=== PATIENT | female | born 1965 | race Caucasian/White ===

== ENCOUNTER 2017-10-24 09:10 | Observation (INO) | payer OTHER, SELFPAY ==
[~2017-10-24 09:10] MED LIST: ACCUNEB SO1.25 MG/1; AZOR 5-40 MG T1 EACH PO; COMPAZINE10 MG PO; KLOR-CON 1010 MEQ PO; MAGNESIUM250 M1 PO; MULTI VITAMIN1 EACH; NASONEX17 GM; NOLVADEX20 MG PO; NORCO 7.5-3251 EACH PO; ZOFRAN ODT4 MG PO
[2017-10-24] MEDS ORDERED: ALBUTEROL2.5 MG/31 INH (11:26)
[2017-10-24] MEDS ORDERED: VITAMIN D1000 UNI1 PO (11:26)
[2017-10-24] MEDS ORDERED: IBUPROFEN 400400 M2 PO (11:27)
[2017-10-24] MEDS ORDERED: MAGOX 400400 MG PO (11:27)
[2017-10-24] MEDS ORDERED: ONE DAILY MULT1 EAC3 PO (11:28)
[2017-10-24] MEDS ORDERED: NASONEX17 GM NASAL (11:28)
[2017-10-24] MEDS ORDERED: NYSTATIN-TRIAMC15 GM TOP (11:29)
[2017-10-24 11:33] VITALS: BP 121/68
[2017-10-24 14:23] LABS: ABSOLUTE BASOPHILS 0.1 thou/uL (0.0-0.2); ABSOLUTE EOSINOPHILS 0.2 thou/uL (0.0-0.7); ABSOLUTE LYMPHOCYTES 1.7 thou/uL (0.8-5.3); ABSOLUTE MONOCYTES 0.6 thou/uL (0.0-1.2); ABSOLUTE NEUTROPHILS 4.2 thou/uL (1.6-8.1); BASOPHILS 0.8 %; EOSINOPHILS 3.7 %; HEMOGLOBIN 13.1 gm/dL (12.0-15.0); LYMPHOCYTES 25.4 %; MCH 28.8 pg (26.0-34.0); MCHC 33.6 g/dL (28.0-37.0); MCV 85.6 fL (80.0-100.0); MONOCYTES 8.3 %; MPV 8.7 fl. (7.2-11.1); NUCLEATED RBCS 0 /100WBC; PLATELET COUNT* 286 thou/uL (150-400); POLYS 61.8 %; RBC 4.55 mil/uL (4.20-5.00); RDW-CV 13.7 % (10.5-14.5); WBC 6.8 thou/uL (4.0-11.0)
[2017-10-24 14:37] LABS: ALBUMIN 3.2 g/dL (3.4-5.0); CALCIUM 8.5 mg/dL (8.5-10.1); CREATININE 0.7 mg/dL (0.6-1.3); POTASSIUM 3.6 mmol/L (3.5-5.1); TOTAL BILIRUBIN 0.2 mg/dL (<0.1-1.0); TOTAL PROTEIN 7.1 g/dL (6.4-8.2)
[2017-10-25 01:03] VITALS: BP 143/63
--- NOTE | 2017-10-25 06:19 | CON ---
[address] [address] CONSULTATION Name: SERGIO DAVIS Room: [address] IN M.R.#: [id number] Admission: 10/24/17 Attend Phys: Jamarcus Osborne Discharge: Date of : 65 Report #: [id number] THIS REPORT FOR: //name// CC: Choco Sanders DATE OF SERVICE: 10/24/2017 ATTENDING PHYSICIAN: Luis Enrique Sanders DO. REASON FOR EVALUATION: Right proximal upper extremity skin and soft tissue infection/cellulitis. HISTORY OF PRESENT ILLNESS: Chart reviewed, patient examined. This is a 52-year-old with history of right-sided breast cancer, is post-mastectomy back in 2012, did have some lymph node removal as well. She generally notes no significant issues with her upper extremity in the intervening years; however, recently had increasing pain associated with swelling and erythrodermic type eruption. She was evaluated in Oncology Clinic, given parenteral dose of ceftriaxone and then later levofloxacin due to persistence and more recently increased swelling and redness as well as pain. She was admitted for ongoing treatment including parenteral antibiotics. She had had some fevers, admits to some anorexia with associated nausea. Denies significant pulmonary-related complaints. ALLERGIES: NONE KNOWN. CURRENT MEDICATIONS: Include p.r.n. analgesics, antiemetics, zolpidem, ceftriaxone. PAST MEDICAL HISTORY: As described above, history of right breast cancer, hypertension, seasonal allergies, asthma, and migraine headaches. SOCIAL HISTORY: Nonsmoker, no ethanol. FAMILY HISTORY: Noncontributory. REVIEW OF SYSTEMS: As above. PHYSICAL EXAMINATION: GENERAL: Udoa-dd-uxhihahw distress, lucid. She is pleasant, appears fairly well nourished. VITAL SIGNS: Temperature 97.7, pulse 67, respirations 16, blood pressure 121/68. SKIN: Warm, [place] [address] CONSULTATION Name: SERGIO DAVIS Room: [address]#: [id number] Admission: 10/24/17 Attend Phys: Jamarcus Osborne Discharge: Date of : 65 Report #: [id number] HEENT: Unremarkable. NECK: Supple. LUNGS: Clear to auscultation. HEART: Regular. I do appreciate a murmur. ABDOMEN: Soft, mildly distended. There are no peritoneal signs. EXTREMITIES: Right upper extremity has moderate inflammatory changes noted throughout its length, although the erythema is most pronounced proximally. There is some palpable tenderness. There is no taut edema at this point. GENITOURINARY: Deferred. RECTAL: Deferred. LABORATORY DATA: TSH of 2.349, T4 1.06, lactic acid of 2.2. Electrolytes: Sodium 139, potassium 3.6, chloride 105, bicarbonate 28, BUN and creatinine 9 and 0.7, glucose of 193. AST of 60, ALT of 97. Albumin of 32, total protein 7.1. CBC: White count of 6.8, H and H 13.1 and 39.0, platelets 286. ASSESSMENT: Right upper extremity skin and soft tissue infection with cellulitis in the setting of previous lymphatic disruption of the limb due to breast cancer and complications related to surgery. We will continue empiric therapy. At this point, she is not overtly toxic. Going forward, she may have to wear some sort of a compression sleeve and see how she does over the course of next 24 to 48 hours. <ELECTRONICALLY SIGNED> By: Choco High MD 10/25/17 0619 1554 [id number] High MD /nt
[2017-10-25 08:30] VITALS: BP 120/61
[2017-10-25 11:19] VITALS: BP 120/61
[2017-10-25] MEDS ORDERED: KEFLEX500 M1 PO (11:29)
[2017-10-25] MEDS ORDERED: TYLENOL325 MG PO (11:35)
== END 2017-10-25 13:07 | disposition home or self-care (01) ==
LOC: M.3W 09:10
PROVIDERS: ADMIT Internal Medicine
DX: L03.113 Cellulitis of right upper limb (principal); I10 Essential (primary) hypertension; J45.909 Unspecified asthma, uncomplicated; E55.9 Vitamin D deficiency, unspecified; I89.0 Lymphedema, not elsewhere classified; G43.709 Chronic migraine without aura, not intractable, without status migrainosus; Z85.3 Personal history of malignant neoplasm of breast; Z90.13 Acquired absence of bilateral breasts and nipples

== ENCOUNTER 2017-11-23 19:45 | Emergency (ER) | payer OTHER, SELFPAY ==
[~2017-11-23] VITALS: Ht 154.9 cm; Wt 89.4 kg
[~2017-11-23 19:45] MED LIST changes: +ALBUTEROL2.5 MG/31 INH; +IBUPROFEN 400400 M2 PO; +KEFLEX500 M1 PO; +MAGOX 400400 MG PO; +NASONEX17 GM NASAL; +NYSTATIN-TRIAMC15 GM TOP; +ONE DAILY MULT1 EAC3 PO; +TYLENOL325 MG PO; +VITAMIN D1000 UNI1 PO
[2017-11-23 20:16] LABS: ABSOLUTE BASOPHILS 0.1 thou/uL (0.0-0.2); ABSOLUTE LYMPHOCYTES 1.6 thou/uL (0.8-5.3); ABSOLUTE MONOCYTES 0.3 thou/uL (0.0-1.2); ABSOLUTE NEUTROPHILS 8.7 thou/uL (1.6-8.1); EOSINOPHILS 0.1 %; HEMATOCRIT 36.2 % (37.0-47.0); HEMOGLOBIN 12.2 gm/dL (12.0-15.0); LYMPHOCYTES 14.6 %; MCHC 33.7 g/dL (28.0-37.0); MCV 86.1 fL (80.0-100.0); MONOCYTES 2.8 %; MPV 8.9 fl. (7.2-11.1); NUCLEATED RBCS 0 /100WBC; PLATELET COUNT* 256 thou/uL (150-400); POLYS 81.5 %; RDW-CV 13.6 % (10.5-14.5); WBC 10.7 thou/uL (4.0-11.0)
[2017-11-23 20:23] LABS: ANION GAP 6 mmol/L (7-16); BUN 17 mg/dL (7-18); CALCIUM 7.8 mg/dL (8.5-10.1); CHLORIDE 104 mmol/L (98-107); CO2 26 mmol/L (21-32); CREATININE 0.7 mg/dL (0.6-1.3); GLUCOSE 171 mg/dL (70-99); POTASSIUM 3.6 mmol/L (3.5-5.1); SODIUM 136 mmol/L (136-145)
[2017-11-23 20:25] LABS: INR 1.2; PROTIME 11.7 Seconds (9.20-11.50)
[2017-11-23 20:33] LABS: ALBUMIN 2.8 g/dL (3.4-5.0); ALKALINE PHOSPHATASE 79 U/L (46-116); LIPASE 94 U/L (73-393); NT-PRO BRAIN NAT PEPTIDE 117 pg/mL (<300); SGOT 30 U/L (15-37); SGPT 66 U/L (30-65); TOTAL BILIRUBIN 0.3 mg/dL (<0.1-1.0); TOTAL PROTEIN 6.7 g/dL (6.4-8.2); TROPONIN-I LEVEL <0.06 ng/mL (<0.06)
[2017-11-23] MEDS ORDERED: ACETAMINOPHEN-1 EAC1 PO (21:51)
[2017-11-23] MEDS ORDERED: IBUPROFEN 800800 MG PO (21:51)
[2017-11-23] MEDS ORDERED: AUGMENTIN 875-1 EACH PO (21:51)
[2017-11-23 22:43] VITALS: BP 109/55
--- NOTE | 2017-11-24 15:15 | EKG ---
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
== END 2017-11-23 22:44 | disposition home or self-care (01) ==
LOC: M.ERS 19:45
PROVIDERS: Emergency Medicine
DX: R50.9 Fever, unspecified (principal); I10 Essential (primary) hypertension; G43.909 Migraine, unspecified, not intractable, without status migrainosus; Z85.3 Personal history of malignant neoplasm of breast

== ENCOUNTER 2017-11-25 20:01 | Inpatient (IN) | payer OTHER ==
[~2017-11-25] VITALS: Ht 154.9 cm; Wt 91.6 kg
[~2017-11-25 20:01] MED LIST changes: +ACETAMINOPHEN-1 EAC1 PO; +AUGMENTIN 875-1 EACH PO; +IBUPROFEN 800800 MG PO
[2017-11-25 20:06] VITALS: BP 136/85
[2017-11-25 20:46] LABS: HEMATOCRIT 31.8 % (37.0-47.0); HEMOGLOBIN 10.8 gm/dL (12.0-15.0); MCH 29.2 pg (26.0-34.0); MCV 85.9 fL (80.0-100.0); MPV 9.1 fl. (7.2-11.1); NUCLEATED RBCS 0 /100WBC; PLATELET COUNT* 210 thou/uL (150-400); RBC 3.71 mil/uL (4.20-5.00); RDW-CV 13.2 % (10.5-14.5); WBC 10.9 thou/uL (4.0-11.0)
[2017-11-25 20:55] LABS: INR 1.3; PROTIME 12.8 Seconds (9.20-11.50)
[2017-11-25 21:00] LABS: ABSOLUTE LYMPHOCYTES 0.2 thou/uL (0.8-5.3); ABSOLUTE MONOCYTES 0.1 thou/uL (0.0-1.2); ABSOLUTE NEUTROPHILS 10.6 thou/uL (1.6-8.1); PLATELET ESTIMATE ADEQUATE
[2017-11-25 21:02] LABS: ANION GAP 7 mmol/L (7-16); BUN 11 mg/dL (7-18); CALCIUM 8.1 mg/dL (8.5-10.1); CHLORIDE 101 mmol/L (98-107); CO2 26 mmol/L (21-32); CREATININE 0.7 mg/dL (0.6-1.3); GLUCOSE 226 mg/dL (70-99); POTASSIUM 3.4 mmol/L (3.5-5.1); SODIUM 134 mmol/L (136-145)
[2017-11-25 21:11] LABS: ALBUMIN 2.6 g/dL (3.4-5.0); ALKALINE PHOSPHATASE 68 U/L (46-116); LIPASE 63 U/L (73-393); NT-PRO BRAIN NAT PEPTIDE 38 pg/mL (<300); SGOT 31 U/L (15-37); SGPT 56 U/L (30-65); TOTAL BILIRUBIN 0.4 mg/dL (<0.1-1.0); TOTAL PROTEIN 6.5 g/dL (6.4-8.2); TROPONIN-I LEVEL <0.06 ng/mL (<0.06)
[2017-11-25 22:06] VITALS: BP 131/76
[2017-11-25 22:30] VITALS: BP 135/71
--- NOTE | 2017-11-25 22:30 | NUR ---
ADMITTED TO FLOOR PER CART ACCOMPANIED BY FAMILY AND ER STAFF WITH BELONGINGS. ORIENTED TO ROOM AND CALL LITE. HISTORY OBTAINED AND ASSESSMENT PERFORMED, SEE ADMIT NOTES. DENIES PAIN OR NAUSEA AT PRESENT. LAC IVF PLACED ON PUMP FOR INFUSION. SCDS PLACED ON PT. DOUBLE MASTECTOMY SCARS, R CHEST PAC NOT ACCESSED AT THIS TIME- PER SECOND BALLER REPORT ER DR BARRIOS HOSPITALIST TO ASSESS SITE AND DETERMINE IF IT SHOULD BE USED AT THIS TIME, RECENTLY PLACED AND SCAB PRESENT AT SITE. NO REDNESS EDEMA OR DRAINAGE NOTED. R ARM WARM, PINK, +CAP REFILL 3+ EDEMA-LIMB ALERT PLACED. PT CO DRY HACKING COUGH, STRESS INCONTINENCE-BRIEF GIVEN PER PT REQUEST. UP WITH STEADY GAIT TO BATHROOM. TELE PLACED ON PT, ST. ROOM AIR SAT 94%. AT BEDSIDE ATTENTIVE TO NEEDS. CALL LITE IN EASY REACH, ABLE TO USE CALL LITE AND MAKE NEEDS KNOWN. REQUESTING JELLO AND GIBRAN CRACKER SNACK-GIVEN. WILL CONTINUE TO MONITOR AND PROVIDE CARES NEEDED.
[2017-11-25] MEDS ORDERED: GEMZAR1 GM IV (23:33)
[2017-11-25] MEDS ORDERED: PACLITAXEL6 MG/1 ML IV (23:34)
[2017-11-26 03:51] VITALS: BP 151/78
--- NOTE | 2017-11-26 06:38 | NUR ---
NEW ADMIT OVERNIGHT. PT HAS SLEPT ON AND OFF WITH AT BEDSIDE. UP WITH SBA TO BR TO VOID, STRESS INCONTINENCE BRIEF ON. LAC IVF INFUSING PER PUMP. TELE ST. RARM EDEMATOUS, ELEVATED ON PILLOW. HEM ONC TO CONSULT TODAY. DENIES PAIN OR PROBLEMS. R CHEST PAC NOT ACCESSED,SITE WITH SCAB. ABLE TO USE CALL LITE AND MAKE NEEDS KNOWN. SCDS ON.
[2017-11-26 08:00] VITALS: BP 139/75
--- NOTE | 2017-11-26 10:10 | EKG ---
[place] [address] ELECTROCARDIOGRAM REPORT Name: SERGIO NUR Room: [address] ADM IN [facility]#: [id number] Admission: 11/25/17 Attend Phys: Fay Coy MD Discharge: Date of : 65 Report #: [id number] THIS REPORT FOR: //name// [facility] ED Test Date: 2017-11-25 Test Time: 20:50:23 Pat Name: SERGIO FERRER Department: Room: Gender: F Emergency Man: GIORGI : 1965 Requested By: Roland Khan Order Number: [id number] MD: Geovanny Munoz Measurements Intervals [place] Rate: 120 P: 59 MD: 124 QRS: 23 QRSD: 66 T: 18 QT: 353 QTc: 499 Interpretive Statements Sinus tachycardia Abnormal R-wave progression, early transition Borderline T abnormalities, anterior leads Borderline prolonged QT interval Baseline wander in lead(s) V4 Compared to ECG 11/23/2017 19:51:38 Sinus rhythm no longer present Electronically Signed On 11-26-2017 10:10:30 CDT by Geovanny Munoz [email or web address] <ELECTRONICALLY SIGNED> By: Geovanny Munoz MD, FAC 11/26/17 101 49 49 Geovanny Munoz MD, FAC /EPI
[2017-11-26] MEDS ORDERED: XARELTO15 MG PO (10:52)
[2017-11-26 11:45] VITALS: BP 118/70
[2017-11-26 15:54] VITALS: BP 119/66
--- NOTE | 2017-11-26 16:34 | NUR ---
PATIENT A&OX4, ROOM AIR, IV LEFT AC FLUIDS INFUSSING. UP AD MIKE, STEADY GAIT. C/O PAIN IN RIGHT ARM, RELIEF WITH MEDICATION. LOW GRADE FEVER, RELIEF WITH MEDICATION. REVIEWED HOME MEDICATIONS, DOCCUMENTED. NO OTHER CONCERNS AT THIS TIME. APPROPRIATE AND COOPORATIVE WITH CARE.
--- NOTE | 2017-11-26 17:09 | NUR ---
SW met with pt to complete initial assessment, introduce self, and SW role. Pt alert, oriented, pleasant. Pt lives at home with her and 2 dtrs. Pt does not anticipate any dc needs at this time. SW to continue to follow.
[2017-11-26 20:55] VITALS: BP 138/69
[2017-11-27 00:01] VITALS: BP 128/69
[2017-11-27 04:00] VITALS: BP 138/70
[2017-11-27 04:17] LABS: ABSOLUTE EOSINOPHILS 0.2 thou/uL (0.0-0.7); ABSOLUTE LYMPHOCYTES 0.8 thou/uL (0.8-5.3); ABSOLUTE NEUTROPHILS 2.2 thou/uL (1.6-8.1); HEMATOCRIT 26.4 % (37.0-47.0); HEMOGLOBIN 9.2 gm/dL (12.0-15.0); LYMPHOCYTES 25.2 %; MCH 29.4 pg (26.0-34.0); MCHC 34.8 g/dL (28.0-37.0); MCV 84.5 fL (80.0-100.0); MONOCYTES 0.8 %; MPV 8.9 fl. (7.2-11.1); NUCLEATED RBCS 0 /100WBC; PLATELET COUNT* 213 thou/uL (150-400); RBC 3.12 mil/uL (4.20-5.00); RDW-CV 13.4 % (10.5-14.5); WBC 3.4 thou/uL (4.0-11.0)
[2017-11-27 04:45] LABS: CALCIUM 7.5 mg/dL (8.5-10.1); CREATININE 0.5 mg/dL (0.6-1.3); POTASSIUM 3.9 mmol/L (3.5-5.1)
[2017-11-27 05:16] LABS: URINE BILIRUBIN NEGATIVE (Negative); URINE BLOOD TRACE (Negative); URINE CLARITY CLEAR; URINE COLOR YELLOW; URINE GLUCOSE-RANDOM NEGATIVE (Negative); URINE KETONES NEGATIVE (Negative); URINE LEUKOCYTES-REFLEX NEGATIVE (Negative); URINE NITRITE-REFLEX NEGATIVE (Negative); URINE PROTEIN NEGATIVE (Negative); URINE UROBILINOGEN 0.2 E.U./dl (0.2-1.0)
--- NOTE | 2017-11-27 07:43 | NUR ---
PT SLEPT WELL OVERNIGHT. LAC IV SL. R LIMB ALERT, EDEMATOUS, ELEVATED ON PILLOW. UP AD MIKE IN ROOM INDEP TO BR TO VOID, STRESS INCONTINENCE REPORTED WITH NON PRODUCTIVE COUGH. DENIES PAIN OVERNIGHT. TELE ST. XAJOYCELYNTO GIVEN ORDERED. UA SENT TO LAB.ABLE TO USE CALL LITE AND MAKE NEEDS KNOWN.
[2017-11-27 10:33] VITALS: BP 129/68
--- NOTE | 2017-11-27 11:37 | CON ---
[address] [address] CONSULTATION Name: SERGIO NUR Room: [address] IN .R.#: [id number] Admission: 11/25/17 Attend Phys: Fay Coy MD Discharge: Date of : 65 Report #: [id number] THIS REPORT FOR: //name// CC: Fay Soto DATE OF SERVICE: 11/26/2017 INFECTIOUS DISEASE CONSULTATION ATTENDING PHYSICIAN: Dr. Coy. REASON FOR EVALUATION: Pneumonitis in the setting of recent diagnosis of recurrent advanced-stage breast cancer, initiated on chemotherapy within the last 2 weeks. HISTORY OF PRESENT ILLNESS: Chart reviewed, the patient examined. This is a 52-year-old woman with known history of stage IV breast cancer with recurrence diagnosed fairly recently. She was hospitalized in October and was felt to have a right upper extremity skin and soft tissue infection with cellulitis. This was in the setting of some lymphedema and this has been fairly well controlled until recently. She was discharged on systemic antibiotics. She was seen in followup with persistence. Repeat venous Doppler now showed deep venous thrombosis. Since that time, workup has confirmed the diagnosis of recurrent breast cancer. She was started on chemotherapy. She was seen in the hospital Emergency Room on 11/23/2017 with complaints of chest-related discomfort and a dry, hacky cough. She has had a recent port placed in the left chest. She returned 2 days later, on 11/25/2017. At this point, the cough persisted and she was generally feeling poorly and this led to admission. She does admit to some dyspnea, although she is not on supplemental oxygen at this point. T-max of 101.0 Fahrenheit. She is generally lucid. Denies significant abdominal-related complaints. Her arm feels about the same. ALLERGIES: None known. MEDICATIONS: Include ibuprofen, albuterol inhaler, pantoprazole, azithromycin and ceftriaxone. PAST MEDICAL HISTORY: As described above, previous double mastectomy with chemo and radiation, initial diagnosis. SOCIAL HISTORY: Nonsmoker, no ethanol. FAMILY HISTORY: Noncontributory. REVIEW OF SYSTEMS: [place] [address] CONSULTATION Name: LUCSERGIO BARBOZA Room: [address] IN [facility]#: [id number] Admission: 11/25/17 Attend Phys: Fay Coy MD Discharge: Date of : 65 Report #: [id number] PHYSICAL EXAMINATION: GENERAL: She is in moderate distress secondary to the cough, which is a frequent during the encounter. It is dry. It is nonproductive. Appears fairly well nourished. VITAL SIGNS: Temperature 99.1, pulse 114, respirations 16 and blood pressure 139/75. SKIN: Warm, dry. HEENT: Otherwise, unremarkable. NECK: Supple. LUNGS: Few scattered crackles. HEART: Regular, tachycardic. I do not appreciate a murmur. EXTREMITIES: Right upper extremity is markedly swollen and is tender. Extremities show no cyanosis. ABDOMEN: Soft, nontender and nondistended. GENITOURINARY: Deferred. RECTAL: Deferred. LABORATORY DATA: Prealbumin of 10.9. Lactic acid up to 2.3, more recently at 1.5. Electrolytes: Sodium 134, potassium 3.4, chloride 101, bicarbonate is 26, anion gap of 7, BUN and creatinine 11 and 0.7 and glucose of 226. LFTs unremarkable. Albumin of 2.6. Total protein 6.5. Estimated GFR of 88. Initial chest x-ray showed a question of opacity over the right heart, repeat improvement. CBC: White count of 10.9, H and H of 10.8 and 31.8 and platelets of 210,000. Blood cultures on 11/23/2017 sterile thus far and on 11/25/2017, in progress. CT of the chest showed no evidence of PE or aortic dissection, some right axillary and mediastinal pulmonary, parenchymal and hepatic metastatic disease. ASSESSMENT AND PLAN: Febrile illness in a patient with stage IV breast cancer, recent re-initiation of chemotherapy. She does have a new indwelling Port-A-Cath. Culture evidence has been unrevealing. Signs and symptoms seem to be focused on the pulmonary status or pulmonary signs or symptoms. We will continue combination therapy for a lower respiratory tract infection at this point, as she is not critically ill. I would be mindful of other potential sources including the right upper extremity port. Urinalysis is pending as well. We will monitor expectantly. <ELECTRONICALLY SIGNED> By: Choco High MD 11/27/17 1137 1044 1217Choco High MD /nt
[2017-11-27 16:58] VITALS: BP 124/67
--- NOTE | 2017-11-27 18:26 | NUR ---
PATIENT IS ALERT AND ORIENTED VERY PLEASANT. UP AD MIKE IN ROOM. VITAL SIGNS STABLE ON ROOM AIR. SOME PAIN IN RIGHT ARM AND AXILLARY AREA, ALSO RIGHT ARM HAS PLUS 2 EDEMA, GOOD PULSE AND CAP REFILL. CALL LIGHT IS IN REACH, WILL CONTINUE TO MONITOR.
[2017-11-27 20:00] VITALS: BP 135/76
[2017-11-27 23:41] VITALS: BP 123/69
[2017-11-28 04:29] LABS: ALBUMIN 2.4 g/dL (3.4-5.0); CALCIUM 7.7 mg/dL (8.5-10.1); CREATININE 0.5 mg/dL (0.6-1.3); POTASSIUM 3.6 mmol/L (3.5-5.1); TOTAL BILIRUBIN 0.4 mg/dL (<0.1-1.0); TOTAL PROTEIN 5.4 g/dL (6.4-8.2)
[2017-11-28 04:32] VITALS: BP 121/73
[2017-11-28 04:42] LABS: ABSOLUTE EOSINOPHILS 0.2 thou/uL (0.0-0.7); ABSOLUTE MONOCYTES 0.1 thou/uL (0.0-1.2); ABSOLUTE NEUTROPHILS 0.9 thou/uL (1.6-8.1); BASOPHILS 0.8 %; EOSINOPHILS 8.7 %; HEMATOCRIT 27.4 % (37.0-47.0); HEMOGLOBIN 9.5 gm/dL (12.0-15.0); LYMPHOCYTES 45.9 %; MCH 29.4 pg (26.0-34.0); MCHC 34.5 g/dL (28.0-37.0); MCV 85.3 fL (80.0-100.0); MONOCYTES 3.5 %; MPV 8.6 fl. (7.2-11.1); NUCLEATED RBCS 0 /100WBC; PLATELET COUNT* 199 thou/uL (150-400); POLYS 41.1 %; RBC 3.22 mil/uL (4.20-5.00); RDW-CV 13.6 % (10.5-14.5); WBC 2.2 thou/uL (4.0-11.0)
--- NOTE | 2017-11-28 05:09 | NUR ---
PT SLEPT AT INTERVALS DURING THE NIGHT, PLEASANT, IV VANC GIVEN, PLEASANT, UP AD MIKE, STAYED THE NIGHT, CALL LIGHT IN REACH, WILL CONTINUE TO MONITOR
[2017-11-28 09:15] VITALS: BP 132/72
[2017-11-28 11:21] VITALS: BP 127/64
[2017-11-28 16:01] VITALS: BP 126/71
--- NOTE | 2017-11-28 17:47 | NUR ---
PATIENT IS ALERT AND ORIENTED TODAY VERY PLEASANT, UP AD MIKE IN ROOM. VITAL SIGNS STABLE ON ROOM AIR. SOME COMPLAINTS OF PAIN THIS MORNING, HEADACHE, THAT WAS CONTROLLED BY ORAL PAIN MEDICATIONS. RIGHT ARM IS STILL SWOLLEN AND THE REDNESS APPEARS TO BE SPREADING SLIGHTLY. CALL LIGHT IS IN REACH, WILL CONTINUE TO MONITOR.
[2017-11-28 20:10] VITALS: BP 137/78
[2017-11-29 00:46] VITALS: BP 132/69
[2017-11-29 03:35] VITALS: BP 121/69
--- NOTE | 2017-11-29 05:04 | NUR ---
PT SLEPT AT INTERVALS DURING THE NIGHT, IV ANTIBIOTICS GIVEN, RIGHT ARM UP ON PILLOW, UP AD MIKE, STAYED THE NIGHT, PLEASANT, CALL LIGHT IN REACH, WILL CONTINUE TO MONITOR
[2017-11-29 08:00] VITALS: BP 118/75
[2017-11-29 09:53] LABS: HEMATOCRIT 28.4 % (37.0-47.0); HEMOGLOBIN 9.8 gm/dL (12.0-15.0); MCH 29.5 pg (26.0-34.0); MCHC 34.6 g/dL (28.0-37.0); MCV 85.2 fL (80.0-100.0); MPV 8.5 fl. (7.2-11.1); NUCLEATED RBCS 0 /100WBC; PLATELET COUNT* 194 thou/uL (150-400); RBC 3.33 mil/uL (4.20-5.00); RDW-CV 13.3 % (10.5-14.5); WBC 9.9 thou/uL (4.0-11.0)
[2017-11-29 10:03] LABS: ALBUMIN 2.4 g/dL (3.4-5.0); CALCIUM 7.9 mg/dL (8.5-10.1); CREATININE 0.6 mg/dL (0.6-1.3); POTASSIUM 3.4 mmol/L (3.5-5.1); TOTAL BILIRUBIN 0.4 mg/dL (<0.1-1.0); TOTAL PROTEIN 5.6 g/dL (6.4-8.2)
[2017-11-29 11:11] LABS: ABSOLUTE EOSINOPHILS 0.1 thou/uL (0.0-0.7); ABSOLUTE LYMPHOCYTES 0.9 thou/uL (0.8-5.3); ABSOLUTE MONOCYTES 0.6 thou/uL (0.0-1.2); ABSOLUTE NEUTROPHILS 8.3 thou/uL (1.6-8.1)
[2017-11-29 11:12] LABS: MACROCYTES Occasional; PLATELET ESTIMATE ADEQUATE
[2017-11-29 11:13] LABS: HYPOCHROMASIA Occasional; MICROCYTES Occasional
[2017-11-29 12:14] VITALS: BP 118/75
[2017-11-29] MEDS ORDERED: CEFUROXIME500 MG PO (12:32)
[2017-11-29 12:35] VITALS: BP 118/75
--- NOTE | 2017-11-29 12:38 | NUR ---
PATIENT IS ALERT AND ORIENTED TODAY VERY PLEASANT, UP AD MIKE IN ROOM. NO COMPLAINTS OF PAIN. VITAL SIGNS STABLE ON ROOM AIR. PATIENT IS BEING DISCHARGED TO HOME. CALL LIGHT IS IN REACH, WILL PASS ON REPORT TO NEXT NURSE.
[2017-11-29 13:30] VITALS: BP 118/75
--- NOTE | 2017-11-29 13:30 | NUR ---
PATIENT DISCHARGED TO HOME. DISCHARGE PAPERS REVIEWED AND SIGNED. PRESCRIPTION AND INFORMATION SHEETS GIVEN. IV REMOVED. BELONGINGS PACKED BY PATIENT AND FAMILY. PATIENT DENIES ANY FURTHER NEEDS. PATIENT TAKEN BY WHEELCHAIR TO EXIT. LEFT WITH DAUGHTER.
== END 2017-11-29 13:30 | disposition home or self-care (01) | DRG 194 ==
LOC: M.ERS 20:01 → M.TBA-ER 21:20 → M.3W 21:20
PROVIDERS: Family Medicine; Internal Medicine; Specialist; ADMIT Internal Medicine
DX: J18.9 Pneumonia, unspecified organism (principal); I82.621 Acute embolism and thrombosis of deep veins of right upper extremity; L03.113 Cellulitis of right upper limb; C50.919 Malignant neoplasm of unspecified site of unspecified female breast; D64.9 Anemia, unspecified; Z90.13 Acquired absence of bilateral breasts and nipples; Z79.1 Long term (current) use of non-steroidal anti-inflammatories (NSAID); Z92.21 Personal history of antineoplastic chemotherapy; Z79.899 Other long term (current) drug therapy

== ENCOUNTER 2018-01-14 10:17 | Inpatient (IN) | payer OTHER, SELFPAY ==
[~2018-01-14] VITALS: Ht 154.9 cm; Wt 84.4 kg
[~2018-01-14 10:17] MED LIST changes: +CEFUROXIME500 MG PO; +GEMZAR1 GM IV; +PACLITAXEL6 MG/1 ML IV; +XARELTO15 MG PO
[2018-01-14 10:22] VITALS: BP 138/80
[2018-01-14] MEDS ORDERED: FLAGYL500 M1 PO (10:27)
[2018-01-14 11:13] LABS: HEMATOCRIT 31.7 % (37.0-47.0); HEMOGLOBIN 10.6 gm/dL (12.0-15.0); MCH 28.1 pg (26.0-34.0); MCHC 33.5 g/dL (28.0-37.0); MCV 83.8 fL (80.0-100.0); MPV 8.1 fl. (7.2-11.1); NUCLEATED RBCS 0 /100WBC; PLATELET COUNT* 205 thou/uL (150-400); RBC 3.79 mil/uL (4.20-5.00); RDW-CV 15.6 % (10.5-14.5); WBC 8.2 thou/uL (4.0-11.0)
[2018-01-14 11:27] LABS: ANION GAP 8 mmol/L (7-16); BUN 9 mg/dL (7-18); CALCIUM 8.5 mg/dL (8.5-10.1); CHLORIDE 104 mmol/L (98-107); CO2 26 mmol/L (21-32); CREATININE 0.7 mg/dL (0.6-1.3); GLUCOSE 243 mg/dL (70-99); POTASSIUM 3.4 mmol/L (3.5-5.1); SODIUM 138 mmol/L (136-145)
[2018-01-14 11:29] LABS: APTT 39.4 Seconds (25.0-31.3); INR 1.7; PROTIME 16.1 Seconds (9.20-11.50)
[2018-01-14 11:44] LABS: ALBUMIN 2.9 g/dL (3.4-5.0); ALKALINE PHOSPHATASE 163 U/L (46-116); CK-MB MASS 0.5 ng/mL (<0.5-3.6); LIPASE 79 U/L (73-393); MAGNESIUM 1.9 mg/dL (1.8-2.4); NT-PRO BRAIN NAT PEPTIDE 83 pg/mL (<300); SGOT 78 U/L (15-37); SGPT 122 U/L (30-65); TOTAL BILIRUBIN 0.3 mg/dL (<0.1-1.0); TOTAL PROTEIN 6.6 g/dL (6.4-8.2); TROPONIN-I LEVEL <0.06 ng/mL (<0.06)
[2018-01-14 12:17] LABS: ABSOLUTE LYMPHOCYTES 1.3 thou/uL (0.8-5.3); ABSOLUTE MONOCYTES 0.6 thou/uL (0.0-1.2); ABSOLUTE NEUTROPHILS 6.3 thou/uL (1.6-8.1); METAMYELOCYTES 1 %; PLATELET ESTIMATE ADEQUATE
[2018-01-14 12:18] LABS: ANISOCYTOSIS Occasional
--- NOTE | 2018-01-14 14:32 | EKG ---
[place] [address] ELECTROCARDIOGRAM REPORT Name: SERGIO NUR Room: [place] [address] ADM IN [facility]#: [id number] Admission: 01/14/18 Attend Phys: Jamarcus Osborne Discharge: Date of : 65 Report #: [id number] THIS REPORT FOR: //name// 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: [place] GRIFFITHS : 1965 Requested By: Roland Khan Order Number: [id number] MD: Reid Masterson Measurements Intervals [place] Rate: 100 P: 46 AL: 123 QRS: 16 QRSD: 86 T: 44 QT: 348 QTc: 449 Interpretive Statements Sinus tachycardia Compared to ECG 11/25/2017 20:50:23 T-wave abnormality no longer present Electronically Signed On 01-14-2018 14:32:14 CDT by Reid Masterson [email or web address] <ELECTRONICALLY SIGNED> By: Reid Masterson MD, [facility] 01/14/18 1432 1023 1023 Reid Masterson MD, [facility] /EPI
[2018-01-14 14:51] VITALS: BP 113/74
--- NOTE | 2018-01-14 15:39 | NUR ---
RECEIVED REPORT. PT TRANSFERRED TO ROOM 215 VIA CART. VSS. CARDIAC MONITORING IN PLACE SR. ADMISSION HISTORY AND ASSESSMENT COMPLETED CHARTED. PT ISALERT AND ORIETNED. PT ON RA. IVF INFUSING PER ORDERS. PT DENIES ANY CURRENT COMPLAINTS OF PAIN OR DISCOMFORT AT THIS TIME. PT IFNORMED OF NEED OF STOOL SAMPLE FOR POSSIBLE C.DIFF. PT COMMUNICATES UNDERSTANDING. PT IS INDEPENDENT WITH ADL'S. PT IS UP AD MIKE IN ROOM. PT ORIENTED TO ROOM AND CALL LIGHT. CALL LIGHT IS MARILEEMotomotives ART. FALL RISK EDUCATION AND FORM SIGNED. WILL CONTINUE TO MONITOR.
--- NOTE | 2018-01-14 17:51 | NUR ---
VSS. CARDIAC MONITORING IN PLACE WITH NO CHANGES THIS SHIT. PT PROGRESSING TOWARDS GOALS. PT REMAINS ON RA. IVF INFUSING PER ORDERS. PT DID HAVE BM THIS SHIFT BUT IT WAS TOO FORMED TO SEND FOR C.DIFF SAMPLE. PT HAS VOICED NO COMPLAITNS OF PAIN OR DISCOMFORT. CALL LIGHT IS WITHIN REACH. WILL CONTINUE TO MONTIOR FOR DURAION OF SHFIT.
[2018-01-15] VITALS: BP 102/63
--- NOTE | 2018-01-15 03:18 | NUR ---
PT ALERT ORIENTED. NS TO R CHEST PORT AT 100MLS/HR. TELEMETRY SHOWS SR. DEVELOPED NAUSIA WITHOUT VOMITING. ZOFRAN ORDERED AND GIVEN. WILL CONTINUE TO MONITOR.
[2018-01-15 04:50] VITALS: BP 127/79
[2018-01-15 07:58] VITALS: BP 124/80
--- NOTE | 2018-01-15 09:49 | NUR ---
ASSUMED CARE OF PT THIS AM AROUND 07- BIOLOGICAL AIDE IN PLACE ORDERED, TRACING SR- UPON ASSESSMENT PT NOTED TO BE RESTING IN BED-PT A&O X4- CONTINET OF BOWEL AND BLADDER- UP AD-MIKE WITH STEADY GAIT NOTED- LCTA, RESP EVEN AND UN-LABORED- VSS, O2 SAT 96% ON RA- ABDOMEN SOFT/ROUND/NON-TENDER, BS X4 QUADS- PT REPORTS LAST BM 01/14/18-RIGHT CHEST PORT ACCESSED, NS 100 ML/HR PRESCIBED- ISOLATION IN PLACE AND MAINTAINED INDICATED, PENDING STOOL COLLECTION- PT DENIES ANY C/O PAIN/DISCOMFORT THIS AM- CALL LIGHT AND PERSONAL BELONGINGS WITH IN REACH- HOURLY ROUNDS IN PLACE R/T SAFETY/NEEDS- ALL NEEDS MET AT THIS TIME-WCTM
[2018-01-15 12:00] VITALS: BP 125/83
--- NOTE | 2018-01-15 13:06 | NUR ---
CM SPOKE TO THE PATIENT TO DISCUSS HOME SITATION, DISCHARGE PLANNING, AND TO INFORM OF THE ROLE OF CM. PATIENT ALERT, ORIENTED, AND INDEPENDENT WIH ADL'S. PATIENT RESIDES AT HOME WITH SPOUSE AND 2 DTR'S. PATIENT WORKS AND DRIVES. PATIENT DOES NOT ANTICIPATE ANY DISCHARGE PLANNING NEEDS. CM WILL REMAIN AVAILABLE TO ASSIST AND FOLLOW NEEDED.
[2018-01-15 16:00] VITALS: BP 138/83
--- NOTE | 2018-01-15 17:53 | NUR ---
PT CURRENLTY RESTING IN BED- METAL CUT OFF SAW OPERATOR IN PLACE AND CONTINUED, TRACING SR- RIGHT CHEST PORT IN PLACE, IVF INFUSSING PRESCIBED- FAIR PO INTAKE NOTED WITH MEALS- PT C/O NAUSEA X1 THIS SHIFT WITH PRN ZOFRAN GIVEN AT 1252- PT REPORTS MEDICATION TO BE EFFECTIVE- CALL MADE TO MARTY GRAYSON WITH OFFICE WHOM STATES PT TESTED POSSITVE IN OFFICE FOR C-DIFF, PAPERWORK FAXED AND ON FRONT OF CHART FOR VIEWING, PT REMAINS IN CONTACT INDICATED-NOTED TO HAVE FORMED STOOL X1 THIS SHIFT- PT DENIES ANY C/O PAIN/DISCOMFORT AT THIS TIME- CALL LIGHT AND PERSONAL BELONGINGS WITH IN REACH- PT MAKES NEEDS KNOWN- ALL NEEDS MET AT THIS TIME-WCTM
[2018-01-15 20:00] VITALS: BP 130/85
[2018-01-16] VITALS: BP 124/76
[2018-01-16 04:00] VITALS: BP 111/70
--- NOTE | 2018-01-16 05:17 | NUR ---
ASSUMED PT CARE AT 19:15 REPORT RECEIVED FROM NURSE. PT IS ALERT, AWAKE, ORIENTED X 4. SINUS RYTHM ON THE MONITOR. OXYGENATION MAINTAINED ABOVE 95 ON RA. DOES NOT COMPLAIN OF ANY PAIN. SHE IS ON SPECIAL ISOLATION FOR C DIFF. RECEIVED HER MEDICATION ORDERED. NORMAL SALINE RUNNING AT 100CC /HR ORDERED. PT RESTED DURING THE WHOLE NIGHT.
[2018-01-16 07:54] VITALS: BP 114/76
--- NOTE | 2018-01-16 09:54 | NUR ---
ASSUMED CARE OF PT THIS AM AROUND 07- GALLERY MANAGER IN PLACE ORDERED, TRACING SR- UPON ASSESSMENT PT NOTED TO BE RESTING IN BED, WATCHING TV- PT A&O X4- CONTINENT OF BOWEL AND BLADDER- UP AD-MIKE IN ROOM, STEADY GAIT NOTED-LCTA, RESP EVEN AND UN-LABORED- VSS, O2 SAT 99% ON RA- ABDOMEN SOFT/ROUND/NON-TENDER, BS X4 QUADS- REPORTED BM THIS AM- RIGHT CHEST PORT ACCESSED, DRESSING C/D/I; IVF INFUSSING PRESCRIBED- ISOLATION IN PLACE AND MAINTAINED INDCIATED R/T C-DIFF- PT DENIES ANY C/O PAIN/DISCOMFORT AT THIS TIME- CALL LIGHT AND PERSONAL BELONGINGS WITH IN REACH- PT MAKES NEEDS KNOWN- ALL NEEDS MET AT THIS TIME-WCTM
[2018-01-16 11:41] VITALS: BP 120/63
[2018-01-16] MEDS ORDERED: FLAGYL500 MG PO (13:26)
[2018-01-16] MEDS ORDERED: FLORASTOR250 MG PO (13:55)
[2018-01-16 14:19] VITALS: BP 120/63
--- NOTE | 2018-01-16 14:43 | NUR ---
HERE THIS SHIFT TO ASSESS WITH ORDERS RECIEVED FOR OKAY TO D/C THIS SHIFT- RIGHT CHEST PORT DEACCESSED PRIOR TO D/C ADN PACKED WITH HEPARIN INDICATED/ORDERED- WAREHOUSE OPERATIONS ASSOCIATE D/C'D PRIOR TO D/C- D/C EDUCATION/TEACHING GIVEN TO PT PRIOR TO D/C WITH ALL QUESTIONS AND CONCERNS ADDRESSED- WRITTEN EDUCATION ALONG WITH SCRIPTS PROVIDED TO PT PRIOR TO D/C- BELONGINGS PACKED AND ACCOUNTED FOR PER PT AND DAUGHTER AT TIME OF D/C- PT ESCORTED WITH BELONGINGS PER TECH VIA W/C TO VEHICLE AT 1447- NO PROBLEMS TO NOTE NOTE AT TIME OF D/C
== END 2018-01-16 14:47 | disposition home or self-care (01) | DRG 684 ==
LOC: M.ERS 10:17 → M.TBA-ER 13:45 → M.2W 15:03
PROVIDERS: Family Medicine; ADMIT Internal Medicine
DX: N17.0 Acute kidney failure with tubular necrosis (principal); C50.919 Malignant neoplasm of unspecified site of unspecified female breast; E86.0 Dehydration; Z85.830 Personal history of malignant neoplasm of bone; Z85.05 Personal history of malignant neoplasm of liver; Z90.13 Acquired absence of bilateral breasts and nipples; Z85.118 Personal history of other malignant neoplasm of bronchus and lung; Z79.899 Other long term (current) drug therapy